=== PATIENT | female | born 1985 | race African-American/Black ===

== ENCOUNTER 2016-12-10 18:54 | Inpatient (IN) | payer OTHER ==
[~2016-12-10] VITALS: Ht 180.3 cm; Wt 123.2 kg
[2016-12-10] VITALS (12 sets, daily range): BP systolic 126–146; BP diastolic 78–89; PULSE 82–101; TEMP 97.9–98.1
[~2016-12-10 18:54] MED LIST: AUGMENTIN 250 M1 TAB PO; SUDAFED30 MG PO
[2016-12-10] MEDS ORDERED: PRENATAL FORMU1 EAC3 PO (19:18)
[2016-12-10] MEDS ORDERED: CALCIUM CARBON650 M2 PO (19:19)
[2016-12-10 20:23] LABS: BASO % 0.3 % (0.0-2.0); EOS # 0.1 (0.0-0.7); EOS % 0.6 % (0-4.0); GRAN # 7.4 (1.4-6.5); GRAN % 63.8 % (42.2-75.2); HEMOGLOBIN 12.3 g/dl (12.5-16.0); LYMPH # 2.9 (1.2-3.4); LYMPH % 25.4 % (20.0-51.0); MEAN CELL VOLUME 91 fl (80.0-100.0); MEAN CORPUSCULAR HEMOGLOBIN 32 pg (27.0-31.0); MEAN CORPUSCULAR HGB CONC 35 g/dl (33.0-37.0); MEAN PLATELET VOLUME 10.2 fl (7.4-10.4); MONO % 8.9 % (1.7-9.3); PLATELET COUNT 225 K/mm3 (130-400); RED BLOOD COUNT 3.89 M/mm3 (4.10-5.30); WHITE BLOOD COUNT 11.5 K/mm3 (4.8-10.8)
[2016-12-10 20:25] LABS: HEMATOCRIT 35.2 % (37.0-47.0)
[2016-12-11] VITALS (46 sets, daily range): BP systolic 12–145; BP diastolic 56–90; PULSE 67–106; TEMP 97.3–98.2
[2016-12-12] MEDS ORDERED: IBU600 MG PO (08:37)
[2016-12-12 08:56] VITALS: BP 118/71; PULSE 87; TEMP 97.8
[2016-12-12 16:14] VITALS: BP 121/88; PULSE 74; TEMP 97.8
[2016-12-12 21:00] VITALS: BP 119/76; PULSE 71; TEMP 98.1
[2016-12-13 08:00] VITALS: BP 138/86; PULSE 75; TEMP 97.7
== END 2016-12-13 13:35 | disposition home or self-care (01) | DRG 775 ==
LOC: LDRO 18:54 → LDR 19:34 → OB 12-11 13:00 → LDRO 12-31 09:56
PROVIDERS: Obstetrics & Gynecology
PROC: 10E0XZZ Delivery of Products of Conception, External Approach (ICD-10-PCS; principal; 2016-12-11)
PROC: 0UQM0ZZ Repair Vulva, Open Approach (ICD-10-PCS; 2016-12-11)
PROC: 0HQ9XZZ Repair Perineum Skin, External Approach (ICD-10-PCS; 2016-12-11)
DX: O99.824 Streptococcus B carrier state complicating childbirth (principal); O69.81X0 Labor and delivery complicated by cord around neck, without compression, not applicable or unspecified; O70.0 First degree perineal laceration during delivery; Z3A.37 37 weeks gestation of pregnancy; Z37.0 Single live birth
CPT/HCPCS: J2405; J2540; J2590; J7120